=== PATIENT | female | born 1970 | race Caucasian/White ===

== ENCOUNTER 2023-04-24 10:49 | Emergency (ER) | payer OTHER, SELFPAY ==
[2023-04-24 11:02] VITALS: BP 128/60
[2023-04-24 11:18] LABS: Urine Albumin Trace (Neg - Trace); Urine Bilirubin Negative (Negative); Urine Character Clear (Clear); Urine Color Yellow; Urine Glucose Negative (Negative); Urine Ketone Negative (Negative); Urine Leukocyte 1+ (Negative); Urine Nitrite Negative (Negative); Urine Occult Blood 4+ (Negative); Urine Specific Gravity 1.015 (<1.030); Urine Urobilinogen Negative (Neg - 1+); Urine pH 6.5 (5.0-9.0)
[2023-04-24 11:38] LABS: % Basophils 0.4 % (0-2); % Immature Granulocytes 0.4 % (0-0.5); % Monocytes 2.3 % (1.7-9.3); % Neutrophils 87.9 % (42.2-75.2); Absolute Lymphocytes 0.7 10^3/uL (1.2-3.4); Absolute Monocytes 0.2 10^3/uL (0.1-0.6); Absolute Neutrophils 6.8 10^3/uL (1.4-6.5); Hematocrit 39.8 % (37.0-47.0); Hemoglobin 13.9 g/dL (12.0-16.0); Mean Corp Hgb Conc. 34.9 g/dL (33.0-37.0); Mean Corpuscular Hgb 30.2 pg (27.0-31.0); Mean Corpuscular Volume 86.3 fL (81.0-99.0); Mean Platelet Volume 9.8 fL (7.4-10.4); Nucleated Red Blood Cells % 0 %; Platelet Count 314 10^3/uL (130-400); Red Blood Cell Count 4.61 10^6/uL (4.20-5.40); Red Cell Dist. Width 11.6 % (11.5-14.5); White Blood Cell Count 7.8 10^3/uL (4.8-10.8)
[2023-04-24 11:39] LABS: Urine Red Blood Cell 26-30 /HPF (0-2)
[2023-04-24 11:40] LABS: Urine Bacteria Few (Negative)
[2023-04-24 11:44] LABS: HCG, Serum Qualitative Screen Negative
[2023-04-24 11:51] LABS: ALT (SGPT) 19 U/L (0-35); AST (SGOT) 29 U/L (14-36); Albumin 4.3 g/dl (3.5-5.0); Alkaline Phosphatase 84 U/L (38-126); Blood Urea Nitrogen 14 mg/dl (7-17); Calcium 9.2 mg/dl (8.4-10.2); Carbon Dioxide 23 mmol/L (22-30); Chloride 106 mmol/L (98-107); Glucose 118 mg/dl (70-99); Potassium 3.9 mmol/L (3.5-5.1); Sodium 138 mmol/L (135-145); Total Bilirubin 0.7 mg/dl (0.2-1.3); Total Protein 7.3 g/dl (6.3-8.2); eGFR > 60.00
[2023-04-24 12:15] VITALS: BMI 23.4
--- NOTE | 2023-04-24 12:27 | ED.GENMED ---
History of Present Illness
General
Chief Complaint: Flank Pain
Source: patient
Time Seen by Provider: 04/24/23 11:25
Travel History
Have you had any contact with someone who has COVID-19?: No
Do you have any symptoms of coronavirus? Fever > 100 degrees, chills, cough, shortness of breath, sore throat, loss of taste or smell, muscle aches, or headache?: No
History of Present Illness
History of Present Illness:
52-year-old female presents to the emergency room complaining of left-sided flank pain. Pain began several days ago. She thought initially it was musculoskeletal pain and sought care at her chiropractor. Despite treatment from her chiropractor
symptoms did not improve. Symptoms actually seem to get worse over the past couple days. She went to an urgent care today where she was referred to the emergency room. She denies any fever. She does have nausea but has not vomited. Pain starts
in the left flank and radiates down to her groin. Nothing seems to make the pain better or worse.
Past History
Past History
ED Past Medical History: Negative Asthma, HTN, Hypercholesterolemia or NIDDM
ED Past Surgical History: None
Social History
Tobacco: Non-smoker
Alcohol: Occasional
Personal: Single
Living: with family
Phy Exam
Physical Exam
Physical Exam:
General: Awake, Alert, Oriented X3. No acute distress.
Vitals: unremarkable
Head: Atraumatic
Eyes: Pupils equal, EOMI
Throat: Airway intact, no exudates
Neck: Trachea midline
Lungs: Clear and equal b/l
Heart: Regular rate, no murmurs
Abd: Soft, Nontender, No pulsatile mass
Back: No significant CVA tenderness to percussion bilaterally
Neuro: Nonfocal
Skin: Warm, dry, no rash
Extremities: pulses equal b/l, no edema
Course
Orders/Labs/Results
Orders:
Orders
04/24/23 11:04
Test Result ONCE
04/24/23 11:09
Urinalysis Urgent
Date Specimen was Collected: 04/24/23
Time Specimen was Collected: 11:04
Urine Microscopic Urgent
Date Specimen was Collected: 04/24/23
Time Specimen was Collected: 11:04
04/24/23 11:21
Complete Blood Count/With Diff Urgent
Comprehensive Metabolic Panel Urgent
HCG, Serum Qualitative Screen Urgent
04/24/23 12:18
CT Abd/pel Without Iv Or Oral Urgent
Comment:
Reason For Exam: left flank pain
0.9% Sodium Chloride 500 ml [Nss] 500 ml IV BOLUS
Ketorolac [Toradol] 15 mg IV NOW STA
Ondansetron Injectable [Zofran] 4 mg IV NOW STA
04/24/23 12:37
HYDROmorphone [Dilaudid] 0.5 mg .ROUTE .STK-MED ONE
04/24/23 12:39
HYDROmorphone [Dilaudid] 0.5 mg IV NOW STA
Abnormal Lab Results
04/24/23 04/24/23
11:09 11:21
Absolute Neuts (auto) 6.8 H 10^3/uL
(1.4-6.5)
Absolute Lymphs (auto) 0.7 L 10^3/uL
(1.2-3.4)
Neutrophils % 87.9 H %
(42.2-75.2)
Lymphocytes % 9.0 L %
(20.5-51.1)
Glucose 118 H mg/dl
(70-99)
Urine Occult Blood 4+ A
(Negative)
Ur Leukocyte Esterase 1+ A
(Negative)
Urine RBC 26-30 A /HPF
(0-2)
Urine WBC 6-10 A /HPF
(0-5)
Urine Bacteria Few A
(Negative)
04/24/23 11:21
04/24/23 11:21
Vital Signs
Initial and Last Documented VS:
Initial Vital Signs
Temp Pulse Resp BP Pulse Ox
98.5 F 56 18 128/60 100
04/24/23 11:02 04/24/23 11:02 04/24/23 11:02 04/24/23 11:02 04/24/23 11:02
Last Documented Vital Signs
Temp Pulse Resp BP Pulse Ox
98.5 F 56 18 128/60 100
04/24/23 11:02 04/24/23 11:02 04/24/23 11:02 04/24/23 11:02 04/24/23 11:02
MDM/Problems Addressed
Differential Diagnosis Includes:
kidney stone, pyelo, musculoskeletal pain
MDM/Problems Addressed:
Urinalysis does show some blood however patient states she is having her menstrual period. CT abdomen pelvis without IV contrast obtained which essentially is normal. Reexamination of the patient shows no rash to suggest zoster. She has no
reproducible abdominal tenderness. Pain is upper lumbar lower thoracic. Will start on a Medrol Dosepak for musculoskeletal pain and have her follow-up with orthopedics as an outpatient.
*Critical Care Note
Total Time (30-74mins, 75-104mins- exclusive of procedures): Not Applicable
ED Attending Note
-
Portions of this chart may have been created with voice recognition software.� Occasional wrong word or��sound alike� substitutions may have occurred due to the inherent limitations of voice recognition software.
Discharge Plan
Departure
Patient Disposition: Home (Routine Discharge)
Date of Disposition: 04/24/23
Time of Disposition: 14:00
Patient with high blood pressure during this ER visit?: No
Condition: Good
Discharge Problem:
Back pain
Instructions: Back Pain
Prescriptions:
New
methylprednisolone [Medrol (Chuckie)] 4 mg tablets,dose pack
See Rx Instructions .ROUTE .COMPLEX Qty: 21 0RF
Rx Instructions:
orally per package directions
Referrals:
Felipa Reno PA-C [Family Provider] -
Valentin Archer MD [Active] -
Interventions
Interventions:
*Risk Screen - Suicide Last Done: 04/24/23 12:15
*General Assessment Last Done: 04/24/23 12:15
*Neglect/Abuse Screening Last Done: 04/24/23 12:15
VD-Ijmrib-Aavaaqxijs Assessment Last Done: 04/24/23 12:15
ED-Female Genitourinary Assessment Last Done: 04/24/23 12:15
[2023-04-24] MEDS: ZOFRAN 4 MG IV (12:38)
[2023-04-24] MEDS: NSS 500 IV (12:38)
[2023-04-24] MEDS: DILAUDID 0.5 MG IV (12:39)
[2023-04-24 14:36] VITALS: BP 146/80
== END 2023-04-24 14:39 | disposition home or self-care (01) ==
LOC: EMR 10:49
PROVIDERS: Emergency Medicine; EMERGENCY PHYSICIAN Emergency Medicine; FAMILY PHYSICIAN Physician Assistant Medical
DX: M54.9 Dorsalgia, unspecified (principal)
CPT/HCPCS: 99284; 96374; 96375; 96361 ×2; 74176; 80053; 81003; 81015; 84703; 85025

== ENCOUNTER 2023-04-25 07:37 | Emergency (ER) | payer OTHER, SELFPAY ==
[2023-04-25 07:39] VITALS: BP 126/59
--- NOTE | 2023-04-25 08:18 | ED.GENMED ---
History of Present Illness
General
Chief Complaint: Back Pain
Source: patient
Exam Limitations: none
Time Seen by Provider: 04/25/23 08:01
Nursing documentation reviewed up to this point in time: agreed with
Travel History
Have you had any contact with someone who has COVID-19?: No
Do you have any symptoms of coronavirus? Fever > 100 degrees, chills, cough, shortness of breath, sore throat, loss of taste or smell, muscle aches, or headache?: No
History of Present Illness
History of Present Illness:
Patient presents to ED secondary to persistent left lower back pain over the past 1 week. Patient states that her pain started as she was sitting, and has progressively gotten worse. Patient was evaluated in ED yesterday and was prescribed Medrol
Dosepak, which she has taken without relief in symptoms. Denies fever or chills. Denies nausea or vomiting. Denies urinary or bowel incontinence. Denies loss of sensation or weakness. Patient has also taken Aleve this morning around 5:15 AM
without much relief in symptoms. Since pain started, patient has seen physical therapist/chiropractor. Initially, patient felt as though she was improving, but 2 days ago, while she was walking, when she turned, she felt 'popping' sensation in her
back and since then pain has worsened.
Past History
Past History
ED Past Medical History: Negative Asthma, HTN, Hypercholesterolemia or NIDDM
ED Past Surgical History: None
Social History
Tobacco: Non-smoker
Alcohol: Occasional
Personal: Single
Living: with family
Review of Systems
Review of Systems
Allergies reviewed?: Yes
All Other Systems: ROS reviewed and negative except as documented in HPI and ROS
Constitutional: Reports no symptoms
EENT: Reports no symptoms
Respiratory: Reports no symptoms
Cardiac: Reports no symptoms
ABD/GI: Reports no symptoms; Denies abdominal pain, nausea or vomiting
: Reports no symptoms; Denies incontinence
Musculoskeletal: Reports back pain
Skin: Reports no symptoms
Neurological: Reports no symptoms; Denies weakness or numbness
Phy Exam
Physical Exam
Physical Exam:
Physical Exam
General: moderate painful distress, not acutely ill. afebrile
Head: nc/at. eomi
Neck: supple. no meningeal signs.
Abdomen: normal bowel sounds. not tender.
Back: no midline tenderness. mild left upper buttock tenderness to palpation, without swelling/erythema/ecchymosis.
Neuro: alert and oriented. no focal neurological deficits
Skin: no rash
Psychiatric: well kept. interactive and cooperative
Extremities: no edema. no calf tenderness.
Course
Orders/Labs/Results
Orders:
Orders
04/25/23 08:14
Diazepam [Valium] 2 mg PO NOW STA
HYDROmorphone [Dilaudid] 0.5 mg IV NOW STA
Ketorolac [Toradol] 15 mg IV NOW STA
04/25/23 08:46
Basic Metabolic Panel Urgent
CBC/With ESR Urgent
Abnormal Lab Results
04/25/23
08:46
Absolute Neuts (auto) 8.0 H 10^3/uL
(1.4-6.5)
Absolute Lymphs (auto) 0.7 L 10^3/uL
(1.2-3.4)
Neutrophils % 85.6 H %
(42.2-75.2)
Lymphocytes % 7.5 L %
(20.5-51.1)
BUN 18 H mg/dl
(7-17)
Glucose 114 H mg/dl
(70-99)
04/25/23 08:46
04/25/23 08:46
Vital Signs
Initial and Last Documented VS:
Initial Vital Signs
Temp Pulse Resp BP Pulse Ox
97.8 F 79 24 126/59 100
04/25/23 07:39 04/25/23 07:39 04/25/23 07:39 04/25/23 07:39 04/25/23 07:39
Last Documented Vital Signs
Temp Pulse Resp BP Pulse Ox
97.8 F 79 24 122/75 100
04/25/23 07:39 04/25/23 07:39 04/25/23 07:39 04/25/23 10:00 04/25/23 10:15
MDM/Problems Addressed
MDM/Problems Addressed:
Lumbar spine MRI from 2009 reviewed -annular tear with herniated disc noted.
History and exam consistent with likely sciatica. However, patient does not have any exam findings concerning for cauda equina syndrome at this time. Patient given symptomatic treatment, with moderate improvement symptoms. As such, patient was
discharged home in stable condition, with recommendation to follow-up with PCP or referred pain management physician for further evaluation and treatment. Patient is otherwise afebrile and neurologically intact, at time of discharge to the care of
her family.
*Critical Care Note
Total Time (30-74mins, 75-104mins- exclusive of procedures): Not Applicable
ED Attending Note
-
Portions of this chart may have been created with voice recognition software.� Occasional wrong word or��sound alike� substitutions may have occurred due to the inherent limitations of voice recognition software.
Discharge Plan
Departure
Patient Disposition: Home (Routine Discharge)
Date of Disposition: 04/25/23
Time of Disposition: 10:23
Patient with high blood pressure during this ER visit?: Yes
Discharge Problem:
Sciatica
Instructions: Sciatica (DC)
Prescriptions:
New
diazepam [Valium] 2 mg tablet
2 mg PO TID PRN (Reason: muscle spasm) Qty: 10 0RF
No Action
methylprednisolone [Medrol (Chuckie)] 4 mg tablets,dose pack
See Rx Instructions .ROUTE .COMPLEX Qty: 21 0RF
Rx Instructions:
orally per package directions
escitalopram oxalate [Lexapro] 10 mg Tablet
10 mg PO DAILY
naproxen sodium [Aleve] 220 mg Capsule
220 mg PO BID PRN (Reason: pain)
Referrals:
Rohit Ely MD [Active] -
Felipa Reno PA-C [Family Provider] -
Activity Restrictions/Additional Instructions:
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 Please return to ED with worsening symptoms, i.e. fever/worsening pain/weakness/incontinence. Please
continue to take already prescribed Medrol Dosepak as well as ibuprofen at home, along with warm compress application. Your prescription has been sent electronically to [facility] in [place].
Interventions
Interventions:
*Risk Screen - Suicide Last Done: 04/25/23 08:07
*Neglect/Abuse Screening Last Done: 04/25/23 08:07
ED- Fall Risk Assessment Last Done: 04/25/23 09:13
*ED COVID-19 Vaccine History Last Done: 04/25/23 07:45
*Nursing Disposition Last Done: 04/25/23 11:00
ED-Musculoskeletal Assessment Last Done: 04/25/23 08:13
Discharge Date and Time
Discharge Date/Time: 04/25/23 11:02
[2023-04-25] MEDS: VALIUM 2 MG PO (08:20)
[2023-04-25] MEDS: TORADOL 15 MG IV (08:32)
[2023-04-25] MEDS: DILAUDID 0.5 MG IV (08:33)
[2023-04-25 08:56] LABS: % Basophils 0.1 % (0-2); % Immature Granulocytes 0.3 % (0-0.5); % Lymphocytes 7.5 % (20.5-51.1); % Monocytes 6.5 % (1.7-9.3); % Neutrophils 85.6 % (42.2-75.2); Absolute Lymphocytes 0.7 10^3/uL (1.2-3.4); Absolute Monocytes 0.6 10^3/uL (0.1-0.6); Hemoglobin 13.6 g/dL (12.0-16.0); Mean Corp Hgb Conc. 35.8 g/dL (33.0-37.0); Mean Corpuscular Hgb 30.4 pg (27.0-31.0); Mean Corpuscular Volume 84.8 fL (81.0-99.0); Mean Platelet Volume 9.4 fL (7.4-10.4); Nucleated Red Blood Cells % 0 %; Platelet Count 326 10^3/uL (130-400); Red Blood Cell Count 4.48 10^6/uL (4.20-5.40); Red Cell Dist. Width 11.6 % (11.5-14.5); White Blood Cell Count 9.4 10^3/uL (4.8-10.8)
[2023-04-25 09:09] LABS: Blood Urea Nitrogen 18 mg/dl (7-17); Calcium 9.5 mg/dl (8.4-10.2); Carbon Dioxide 24 mmol/L (22-30); Chloride 105 mmol/L (98-107); Glucose 114 mg/dl (70-99); Sodium 137 mmol/L (135-145); eGFR > 60.00
[2023-04-25 09:10] VITALS: BP 123/68
[2023-04-25 09:38] LABS: Erythrocyte Sed Rate 8 mm/hour (0-20)
[2023-04-25 10:00] VITALS: BP 122/75
== END 2023-04-25 11:02 | disposition home or self-care (01) ==
LOC: EMR 07:37
PROVIDERS: EMERGENCY PHYSICIAN Emergency Medicine; FAMILY PHYSICIAN Physician Assistant Medical
DX: M54.40 Lumbago with sciatica, unspecified side (principal)
CPT/HCPCS: 99283; 96374; 96375; 80048; 85025; 85652

== ENCOUNTER → 2023-08-13 15:11 | Outpatient (REF) | payer OTHER, SELFPAY | LOC: HWWDC 15:11 | PROVIDERS: ATTENDING PHYSICIAN Physician Assistant Medical | DX: Z12.31 Encounter for screening mammogram for malignant neoplasm of breast (principal) | CPT/HCPCS: 77063; 77067 ==

== ENCOUNTER → 2023-08-16 14:43 | Outpatient (REF) | payer OTHER, SELFPAY | LOC: WDC 14:43 | PROVIDERS: ATTENDING PHYSICIAN Physician Assistant Medical | DX: R92.8 Other abnormal and inconclusive findings on diagnostic imaging of breast (principal) | CPT/HCPCS: 76642 ==

== ENCOUNTER → 2024-08-17 08:34 | Outpatient (REF) | payer OTHER, SELFPAY | LOC: WDC 08:34 | PROVIDERS: ATTENDING PHYSICIAN Obstetrics & Gynecology Gynecology; FAMILY PHYSICIAN Physician Assistant Medical | DX: Z12.31 Encounter for screening mammogram for malignant neoplasm of breast (principal); R92.8 Other abnormal and inconclusive findings on diagnostic imaging of breast; N60.02 Solitary cyst of left breast | CPT/HCPCS: 76642; 77063; 77067 ==